=== PATIENT | male | born 1995 | race Caucasian/White ===

== ENCOUNTER 2020-05-14 11:09 | Emergency (ER) | payer OTHER ==
[~2020-05-14] VITALS: Ht 243.8 cm; Wt 68.0 kg
[2020-05-14] MEDS ORDERED: VISTARIL50 MG PO (16:31)
== END 2020-05-14 18:00 | disposition home or self-care (01) ==
LOC: ER 11:09
DX: R00.2 Palpitations (principal); R44.1 Visual hallucinations; F14.10 Cocaine abuse, uncomplicated; F11.10 Opioid abuse, uncomplicated

== ENCOUNTER 2024-03-05 19:51 | Emergency (ER) | payer OTHER ==
[~2024-03-05] VITALS: Ht 167.6 cm; Wt 67.1 kg
[~2024-03-05 19:51] MED LIST: VISTARIL50 MG PO
== END 2024-03-05 21:50 | disposition home or self-care (01) ==
LOC: ER 19:53
DX: T50.905A Adverse effect of unspecified drugs, medicaments and biological substances, initial encounter (principal); R42 Dizziness and giddiness; F31.89 Other bipolar disorder; F41.8 Other specified anxiety disorders

== ENCOUNTER 2024-06-07 17:35 | Emergency (ER) | payer OTHER ==
[~2024-06-07] VITALS: Ht 167.6 cm; Wt 90.7 kg
[2024-06-07] MEDS ORDERED: WELLBUTRIN XL300 MG PO (18:00)
[2024-06-07] MEDS ORDERED: CEFTRIAXONE SODIUM 1,000 MG VIAL IM STA (19:28)
[2024-06-07] MEDS ORDERED: KETOROLAC TROMETHAMINE 30 MG VIAL IM STA (19:28)
[2024-06-07] MEDS ORDERED: NEOMYCIN/POLYMYXIN B/HYDROCORT 20 DR/ML BOTTLE OT STA (19:28)
== END 2024-06-07 19:47 | disposition home or self-care (01) ==
LOC: ER 17:37
DX: H61.20 Impacted cerumen, unspecified ear (principal)

== ENCOUNTER → 2024-10-01 | Emergency (ER) | payer OTHER ==
[~2024-10-01] VITALS: Ht 167.6 cm; Wt 95.3 kg
[~2024-10-01] MED LIST changes: +WELLBUTRIN XL300 MG PO
== END | disposition left against medical advice (07) ==
LOC: ER 01:17
DX: Z53.21 Procedure and treatment not carried out due to patient leaving prior to being seen by health care provider (principal)